=== PATIENT | female | born 1985 | race Caucasian/White ===

== ENCOUNTER → 2018-12-13 09:35 | Outpatient (CLI) | payer OTHER, SELFPAY ==
[2018-12-13 10:36] LABS: Appearance Urine UA CLEAR; Bilirubin Urine UA NEGATIVE (NEGATIVE); Color Urine UA YELLOW; Glucose Urine UA NEGATIVE (Negative); Ketones Urine UA NEGATIVE (NEGATIVE); Leukocyte Esterase Urine UA TRACE (NEGATIVE); Nitrite Urine UA NEGATIVE (Negative); Occult Blood Urine UA NEGATIVE (Negative); Protein Urine UA NEGATIVE (Negative); Urobilinogen Urine UA 0.2 E.U./dL (0.2)
[2018-12-13 10:38] LABS: Bacteria Urine None Seen; RBC Urine None Seen (0-5/HPF)
[2018-12-13 11:19] LABS: Squamous Epithelial Cell Urine 5-10 /HPF (0-5/HPF); WBC Urine 1-5/HPF (0-5/HPF)
[2018-12-13 11:47] LABS: Hepatitis B Surface Antigen NEGATIVE s/c (NEGATIVE); Rubella Antibody IgG 88.4 IU/mL (>15)
[2018-12-13 12:01] LABS: Hep C Virus Ab w/Reflex Quant NEGATIVE s/c (NEGATIVE)
[2018-12-13 17:24] LABS: Add Manual Diff / Slide Review NO; Basophils Absolute Auto 0 /uL (0-100); Eosinophils Absolute Auto 100 /uL (0-450); Eosinophils Percent Auto 1.1 % (2-4); Hematocrit 43.4 % (36-46); Hemoglobin 14.6 g/dL (12.0-16.0); Lymphocytes Absolute Auto 2400 /uL (1100-4500); Lymphocytes Percent Auto 22.9 % (25-40); Mean Corpuscular HGB Conc 33.6 % (30-36); Mean Corpuscular Hemoglobin 28.9 PG (26-34); Mean Corpuscular Volume 85.9 fL (80-100); Monocytes Absolute Auto 500 /uL (0-900); Monocytes Percent Auto 4.9 % (3-14); Neutrophils Absolute Auto 7600 /uL (1500-7000); Neutrophils Percent Auto 71.1 % (50-75); Platelet Count 324 X10^3/uL (150-400); Red Blood Cell Count 5.06 X10^6/uL (4.0-5.2); Red Cell Distribution Width 14.1 % (11.6-14.8); White Blood Cell Count 10.6 X10^3/uL (4.5-11.0)
[2018-12-13 21:37] LABS: HIV 1 and 2 Antibody NEGATIVE (NEGATIVE)
[2018-12-15 14:56] LABS: RPR Screen Nonreactive (Nonreactive)
== END ==
PROVIDERS: PCP Family Medicine; Visit Provider Family Medicine
DX: Z34.81 Encounter for supervision of other normal pregnancy, first trimester (principal)
CPT/HCPCS: 36415; 80055; 81003; 81015; 86703; 86787; 86803; 86850; 86900; 86901; 87086

== ENCOUNTER 2019-01-15 12:09 | Emergency (ER) | payer OTHER, SELFPAY ==
[2019-01-15 12:16] VITALS: BP 110/69; PULSE 86; RESP 18; TEMP 36.6; O2SAT 98
--- NOTE | 2019-01-15 14:15 | ED.FEMALEGU ---
HPI - Female Genitourinary General Chief complaint: Urogenital-Female Stated complaint: fever cloudy urine Time Seen by Provider: 01/15/19 12:20 Source: patient Mode of arrival: ambulatory Limitations: no limitations History of Present Illness HPI Narrative: 33-year-old female smoker is with twins presents with a low-grade fever earlier today which has resolved without treatment as well as cloudy urine. She denies ongoing fever nor abdominal or pelvic pain. She has no vaginal bleeding or discharge. She denies dysuria, frequency or urgency. She has a vague headache but denies any neck pain, runny nose, sore throat nor chest pain, cough or shortness of breath. She has had no nausea or vomiting. Patient : Yes Related Data Home Medications Medication Instructions Recorded Confirmed lamotrigine 100 mg tablet 100 mg PO DAILY 11/18/18 11/18/18 prazosin 2 mg capsule 2 mg PO BEDTIME 11/18/18 11/18/18 1 tab PO DAILY 11/18/18 11/18/18 vitamin,calcium,rxxyyrcx-livg-gzepv acid tablet propranolol 10 mg tablet 10 mg PO BID 11/18/18 11/18/18 trazodone 50 mg tablet 25 mg PO BEDTIME PRN 11/18/18 11/18/18 Allergies Allergy/AdvReac Type Severity Reaction Status Date / Time risperidone Allergy Severe Grand-Mal Verified 11/18/18 13:17 Seizure per patient latex AdvReac Mild Hives and Verified 11/18/18 13:18 Rash lithium AdvReac Vomiting Verified 11/18/18 13:17 Review of Systems Constitutional Denies chills, Reports fever(s), Reports headache(s), Denies lethargy and Denies weakness Eyes Denies change in vision, Denies eye discharge, Denies irritation and Denies loss of vision ENT Ears, Nose, Mouth, and Throat: Denies change in voice, Reports headache(s), Denies neck pain and Denies sore throat Cardiovascular Denies chest pain, Denies irregular heart rhythm, Denies lightheadedness, Denies palpitations, Denies dyspnea, Denies dyspnea on exertion and Denies orthopnea Respiratory Denies cough, Denies dyspnea, Denies dyspnea on exertion and Denies wheezing Gastrointestinal Gastrointestinal: Denies abdominal pain, Denies change in bowel habits, Denies diarrhea, Denies nausea and Denies vomiting Genitourinary Denies hematuria, Denies flank pain, Denies urinary incontinence and Denies urinary urgency Musculoskeletal Denies neck pain Integumentary/Breasts Denies pruritus, Denies erythema, Denies rash and Denies wounds Neurologic Denies confusion, Reports headache(s), Denies loss of vision and Denies weakness Psychiatric Denies anxiety, Denies confusion, Denies depression, Denies homicidal ideation and Denies suicidal ideation Endocrine Denies palpitations Hematologic/Lymphatic Denies easy bruising Allergic/Immunologic Denies wheezing PFSH Social History Smoking Status: Current some day smoker Social History Smoking Status: Current some day smoker Exam Narrative Exam Narrative: GENERAL: [33] year old patient appears stated age. Well-nourished, well-developed patient, in mild distress. HEAD: Atraumatic. Normocephalic. EYES: Pupils equal round and reactive. Extraocular motions intact. No scleral icterus. No injection or drainage. ENT: Nose without bleeding, purulent drainage. Throat without erythema, tonsillar hypertrophy or exudate. Airway patent. NECK: Trachea midline. Non tender. No meningeal signs CARDIOVASCULAR: Regular rate and rhythm without murmurs, gallops, or rubs. RESPIRATORY: Clear to auscultation. Breath sounds equal bilaterally. No wheezes, rales, or rhonchi. GASTROINTESTINAL: Abdomen soft, non-tender, nondistended. EXTREMITIES: No edema or joint tenderness. BACK: Nontender without deformity or crepitance. No flank tenderness. NEURO: AOx3. SKIN: No rash or erythema of visible areas Initial Vital Signs Initial Vital Signs: Vital Signs Temperature 97.9 F 01/15/19 12:16 Pulse Rate 86 01/15/19 12:16 Respiratory Rate 18 01/15/19 12:16 Blood Pressure 110/69 01/15/19 12:16 Pulse Oximetry 98 01/15/19 12:16 Course Vital Signs - 8 hr 01/15/19 12:16 Temperature 97.9 F Pulse Rate 86 Respiratory Rate 18 Blood Pressure 110/69 Pulse Oximetry 98 MDM - Female Genitourinary Lab Data Point of Care Testing Test Results Positive Urine Dip Bedside Urine Glucose Negative Bedside Urine Bilirubin - Negative Bedside Urine Ketone - Negative Urine Specific [place] 1.010 Bedside Urine Occult Blood - Negative Bedside Urine pH 6.0 Bedside Urine Protein - Negative Bedside Urine Urobilinogen - Negative Bedside Urine Nitrite - Negative Bedside Urine Leukocytes - Negative Esterase Imaging Data US - abdomen: Radiologist's impression: [address] [address] Ultrasound Report Signed Patient: Ritu BlackMR#: [id number] : 1985Acct:[id number] Age/Sex: 33 / FDate of Service: 01/15/19 Loc: ED Accession Number: [id number] Procedure: US OB <= 14 weeks fetus Ordering Provider: Lino Johansen D.O. PROCEDURE: US OB <= 14 WEEKS FETUS INDICATIONS: RIGHT PELVIC PAIN OUTSIDE/PRIOR DATING DATA: Last menstrual period (LMP): Unknown. LMP-based estimated date of delivery (PANCHITO): Unknown. First dating scan (date and location): 01/15/19. Estimated date of delivery (PANCHITO) from first dating scan: 07/20/19. TECHNIQUE: Real-time scanning was performed of the fetuses and maternal pelvic organs, with image documentation. COMPARISON: None. FINDINGS: General: An intrauterine dichorionic diamniotic twin is present, as evidenced by separate placental sites and/or intervening membrane thickness of greater than 2 mm at this early gestational age. Cervical length is 3.9 cm in length. Fetus A: Positioned towards the maternal left and is noted to be live with heart motion detected at 150 beats per minute. The crown-rump length measures 7.3 cm, correlating with an estimated gestational age of 13 weeks 3 days. No anatomic abnormalities are evident. However, on the fetus is not well evaluated given the early gestational age. The placenta appears to be developing anteriorly towards the maternal left. No retroplacental fluid collections are evident. Fetus B: Fetus B is positioned towards the maternal right. cardiac motion is detected at 155 beats per minute. The crown-rump length measures 7.6 cm, correlating with an estimated gestational age of 13 weeks 5 days. No anatomic abnormalities are evident. However, the fetus is not well evaluated given the early gestational age. The placenta is developing along the posterior aspect of the uterus towards the right of midline. Maternal organs: Ovaries are not enlarged there may be bilateral corpus luteum cysts.. Limited images through the kidneys demonstrate no hydronephrosis. However, there is a small echogenic focus within the maternal right kidney measuring up to 10 mm in diameter. IMPRESSION: 1. Dichorionic diamniotic twin live . 2. No evidence of subchorionic hemorrhage. 3. Unremarkable maternal ovaries. 4. 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 No hydronephrosis. Dictated by: Jonas Brasher M.D. on 01/15/2019 at 14:48 Approved by: Jonas Brasher M.D. on 01/15/2019 at 14:54 [facility] Narrative Medical decision making narrative: Multiple etiologies for patient's symptoms considered including: [Meningitis versus UTI versus viral syndrome versus other] Patient's symptoms improved or duration of stay with above-stated therapies. Findings and discharge diagnosis discussed with patient/family followed by verbalization of understanding Return precautions discussed with patient/family whom verbalize understanding. Discharge Plan Departure Patient Disposition: Home Clinical Impression: Headache Qualifiers: Headache type: unspecified Headache chronicity pattern: unspecified pattern Intractability: not intractable Qualified Code(s): R51 - Headache Discharge Date/Time: 01/15/19 16:20 Interventions: ED Discharge Assessment Last Done: 01/15/19 16:20 Instructions: DI for Headache Activity Restrictions/Additional Instructions: *You have been diagnosed with [mild headache and resolved fever. Your urine does not suggest infection] *What to do: * continue to take medications as directed *Follow up with your primary care provider in 2-3 days, call for an appointment. Let them know you were seen in the Emergency Department and that we ask that you be seen in follow up *Return to ER if you should have any new, worsening or concerning symptoms, such as [ ongoing fever, vomiting, diarrhea, abdominal pain or other bothersome symptoms] Prescriptions: No Action trazodone 50 mg tablet 25 mg PO BEDTIME PRNRF: 0 propranolol 10 mg tablet 10 mg PO BID RF: 0 lamotrigine [Lamictal] 100 mg tablet 100 mg PO DAILY RF: 0 prazosin 2 mg capsule 2 mg PO BEDTIME RF: 0 prenat.vits,bela,arn-qmpf-edswv tablet 1 tab PO DAILY RF: 0 Referrals: Eran Owens MD [Primary Care Provider] -
--- NOTE | 2019-01-15 14:23 | DI.US.S_ITS ---
PROCEDURE: US OB <= 14 WEEKS FETUS INDICATIONS: RIGHT PELVIC PAIN OUTSIDE/PRIOR DATING DATA: Last menstrual period (LMP): Unknown. LMP-based estimated date of delivery (PANCHITO): Unknown. First dating scan (date and location): 01/15/19. Estimated date of delivery (PANCHITO) from first dating scan: 07/20/19. TECHNIQUE: Real-time scanning was performed of the fetuses and maternal pelvic organs, with image documentation. COMPARISON: None. FINDINGS: General: An intrauterine dichorionic diamniotic twin is present, as evidenced by separate placental sites and/or intervening membrane thickness of greater than 2 mm at this early gestational age. Cervical length is 3.9 cm in length. Fetus A: Positioned towards the maternal left and is noted to be live with heart motion detected at 150 beats per minute. The crown-rump length measures 7.3 cm, correlating with an estimated gestational age of 13 weeks 3 days. No anatomic abnormalities are evident. However, on the fetus is not well evaluated given the early gestational age. The placenta appears to be developing anteriorly towards the maternal left. No retroplacental fluid collections are evident. Fetus B: Fetus B is positioned towards the maternal right. cardiac motion is detected at 155 beats per minute. The crown-rump length measures 7.6 cm, correlating with an estimated gestational age of 13 weeks 5 days. No anatomic abnormalities are evident. However, the fetus is not well evaluated given the early gestational age. The placenta is developing along the posterior aspect of the uterus towards the right of midline. Maternal organs: Ovaries are not enlarged there may be bilateral corpus luteum cysts.. Limited images through the kidneys demonstrate no hydronephrosis. However, there is a small echogenic focus within the maternal right kidney measuring up to 10 mm in diameter. IMPRESSION: 1. Dichorionic diamniotic twin live . 2. No evidence of subchorionic hemorrhage. 3. Unremarkable maternal ovaries. 4. 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 No hydronephrosis. Dictated by: Jonas Brasher M.D. on 01/15/2019 at 14:48 Approved by: Jonas Brasher M.D. on 01/15/2019 at 14:54
[2019-01-15 14:49] VITALS: BP 107/50; PULSE 79; RESP 14; O2SAT 99
[2019-01-15 15:47] VITALS: BP 117/78; PULSE 86; RESP 15; O2SAT 100
--- NOTE | 2019-01-15 15:50 | PC.NURSE ---
Pt states having had cloudy urine this morning. Denies any burning sensation, urinary frequency or urgency. stated had fever today. States has high as 101.8 orally. states has had headache with mild dizziness. denies any other symptoms.
--- NOTE | 2019-01-16 08:12 | ED_ITS ---
HPI - Female Genitourinary General Chief complaint: Urogenital-Female Stated complaint: fever cloudy urine Time Seen by Provider: 01/15/19 12:20 Source: patient Mode of arrival: ambulatory Limitations: no limitations History of Present Illness HPI Narrative: 33-year-old female smoker is with twins presents with a low-grade fever earlier today which has resolved without treatment as well as cloudy urine. She denies ongoing fever nor abdominal or pelvic pain. She has no vaginal bleeding or discharge. She denies dysuria, frequency or urgency. She has a vague headache but denies any neck pain, runny nose, sore throat nor chest pain, cough or shortness of breath. She has had no nausea or vomiting. Patient : Yes Related Data Home Medications Medication Instructions Recorded Confirmed lamotrigine 100 mg tablet 100 mg PO DAILY 11/18/18 11/18/18 prazosin 2 mg capsule 2 mg PO BEDTIME 11/18/18 11/18/18 1 tab PO DAILY 11/18/18 11/18/18 vitamin,calcium,hozbgxah-jprq-otsbr acid tablet propranolol 10 mg tablet 10 mg PO BID 11/18/18 11/18/18 trazodone 50 mg tablet 25 mg PO BEDTIME PRN 11/18/18 11/18/18 Allergies Allergy/AdvReac Type Severity Reaction Status Date / Time risperidone Allergy Severe Grand-Mal Verified 11/18/18 13:17 Seizure per patient latex AdvReac Mild Hives and Verified 11/18/18 13:18 Rash lithium AdvReac Vomiting Verified 11/18/18 13:17 Review of Systems Constitutional Denies chills, Reports fever(s), Reports headache(s), Denies lethargy and Denies weakness Eyes Denies change in vision, Denies eye discharge, Denies irritation and Denies loss of vision ENT Ears, Nose, Mouth, and Throat: Denies change in voice, Reports headache(s), Denies neck pain and Denies sore throat Cardiovascular Denies chest pain, Denies irregular heart rhythm, Denies lightheadedness, Denies palpitations, Denies dyspnea, Denies dyspnea on exertion and Denies orthopnea Respiratory Denies cough, Denies dyspnea, Denies dyspnea on exertion and Denies wheezing Gastrointestinal Gastrointestinal: Denies abdominal pain, Denies change in bowel habits, Denies diarrhea, Denies nausea and Denies vomiting Genitourinary Denies hematuria, Denies flank pain, Denies urinary incontinence and Denies urinary urgency Musculoskeletal Denies neck pain Integumentary/Breasts Denies pruritus, Denies erythema, Denies rash and Denies wounds Neurologic Denies confusion, Reports headache(s), Denies loss of vision and Denies weakness Psychiatric Denies anxiety, Denies confusion, Denies depression, Denies homicidal ideation and Denies suicidal ideation Endocrine Denies palpitations Hematologic/Lymphatic Denies easy bruising Allergic/Immunologic Denies wheezing PFSH Social History Smoking Status: Current some day smoker Social History Smoking Status: Current some day smoker Exam Narrative Exam Narrative: GENERAL: [33] year old patient appears stated age. Well- nourished, well-developed patient, in mild distress. HEAD: Atraumatic. Normocephalic. EYES: Pupils equal round and reactive. Extraocular motions intact. No scleral icterus. No injection or drainage. ENT: Nose without bleeding, purulent drainage. Throat without erythema, tonsillar hypertrophy or exudate. Airway patent. NECK: Trachea midline. Non tender. No meningeal signs CARDIOVASCULAR: Regular rate and rhythm without murmurs, gallops, or rubs. RESPIRATORY: Clear to auscultation. Breath sounds equal bilaterally. No wheezes, rales, or rhonchi. GASTROINTESTINAL: Abdomen soft, non-tender, nondistended. EXTREMITIES: No edema or joint tenderness. BACK: Nontender without deformity or crepitance. No flank tenderness. NEURO: AOx3. SKIN: No rash or erythema of visible areas Initial Vital Signs Initial Vital Signs: Vital Signs Temperature 97.9 F 01/15/19 12:16 Pulse Rate 86 01/15/19 12:16 Respiratory Rate 18 01/15/19 12:16 Blood Pressure 110/69 01/15/19 12:16 Pulse Oximetry 98 01/15/19 12:16 Course Vital Signs - 8 hr 01/15/19 12:16 Temperature 97.9 F Pulse Rate 86 Respiratory Rate 18 Blood Pressure 110/69 Pulse Oximetry 98 MDM - Female Genitourinary Lab Data Point of Care Testing Test Results Positive Urine Dip Bedside Urine Glucose Negative Bedside Urine Bilirubin - Negative Bedside Urine Ketone - Negative Urine Specific [place] 1.010 Bedside Urine Occult Blood - Negative Bedside Urine pH 6.0 Bedside Urine Protein - Negative Bedside Urine Urobilinogen - Negative Bedside Urine Nitrite - Negative Bedside Urine Leukocytes - Negative Esterase Imaging Data US - abdomen: Radiologist's impression: [address] [address] Ultrasound Report Signed Patient: Ritu BlackMR#: [id number] : 1985Acct:[id number] Age/Sex: 33 / FDate of Service: 01/15/19 Loc: ED Accession Number: [id number] Procedure: US OB <= 14 weeks fetus Ordering Provider: Lino Johansen D.O. PROCEDURE: US OB <= 14 WEEKS FETUS INDICATIONS: RIGHT PELVIC PAIN OUTSIDE/PRIOR DATING DATA: Last menstrual period (LMP): Unknown. LMP-based estimated date of delivery (PANCHITO): Unknown. First dating scan (date and location): 01/15/19. Estimated date of delivery (PANCHITO) from first dating scan: 07/20/19. TECHNIQUE: Real-time scanning was performed of the fetuses and maternal pelvic organs, with image documentation. COMPARISON: None. FINDINGS: General: An intrauterine dichorionic diamniotic twin is present, as evidenced by separate placental sites and/or intervening membrane thickness of greater than 2 mm at this early gestational age. Cervical length is 3.9 cm in length. Fetus A: Positioned towards the maternal left and is noted to be live with heart motion detected at 150 beats per minute. The crown-rump length measures 7.3 cm, correlating with an estimated gestational age of 13 weeks 3 days. No anatomic abnormalities are evident. However, on the fetus is not well evaluated given the early gestational age. The placenta appears to be developing anteriorly towards the maternal left. No retroplacental fluid collections are evident. Fetus B: Fetus B is positioned towards the maternal right. cardiac motion is detected at 155 beats per minute. The crown-rump length measures 7.6 cm, correlating with an estimated gestational age of 13 weeks 5 days. No anatomic abnormalities are evident. However, the fetus is not well evaluated given the early gestational age. The placenta is developing along the posterior aspect of the uterus towards the right of midline. Maternal organs: Ovaries are not enlarged there may be bilateral corpus luteum cysts.. Limited images through the kidneys demonstrate no hydronephrosis. However, there is a small echogenic focus within the maternal right kidney measuring up to 10 mm in diameter. IMPRESSION: 1. Dichorionic diamniotic twin live . 2. No evidence of subchorionic hemorrhage. 3. Unremarkable maternal ovaries. 4. 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 No hydronephrosis. Dictated by: Jonas Brasher M.D. on 01/15/2019 at 14:48 Approved by: Jonas Brasher M.D. on 01/15/2019 at 14:54 [facility] Narrative Medical decision making narrative: Multiple etiologies for patient's symptoms considered including: [Meningitis versus UTI versus viral syndrome versus other] Patient's symptoms improved or duration of stay with above-stated therapies. Findings and discharge diagnosis discussed with patient/family followed by verbalization of understanding Return precautions discussed with patient/family whom verbalize understanding. Discharge Plan Departure Patient Disposition: Home Clinical Impression: Headache Qualifiers: Headache type: unspecified Headache chronicity pattern: unspecified pattern Intractability: not intractable Qualified Code(s): R51 - Headache Discharge Date/Time: 01/15/19 16:20 Interventions: ED Discharge Assessment Last Done: 01/15/19 16:20 Instructions: DI for Headache Activity Restrictions/Additional Instructions: *You have been diagnosed with [mild headache and resolved fever. Your urine does not suggest infection] *What to do: * continue to take medications as directed *Follow up with your primary care provider in 2-3 days, call for an appointment. Let them know you were seen in the Emergency Department and that we ask that you be seen in follow up *Return to ER if you should have any new, worsening or concerning symptoms, such as [ ongoing fever, vomiting, diarrhea, abdominal pain or other bothersome symptoms] Prescriptions: No Action trazodone 50 mg tablet 25 mg PO BEDTIME PRNRF: 0 propranolol 10 mg tablet 10 mg PO BID RF: 0 lamotrigine [Lamictal] 100 mg tablet 100 mg PO DAILY RF: 0 prazosin 2 mg capsule 2 mg PO BEDTIME RF: 0 prenat.vits,bela,hyv-doqn-ednck tablet 1 tab PO DAILY RF: 0 Referrals: Eran Owens MD [Primary Care Provider] -
== END 2019-01-15 16:20 | disposition home or self-care (01) ==
PROVIDERS: Emergency Provider Emergency Medicine; PCP Family Medicine
DX: O26.91 Pregnancy related conditions, unspecified, first trimester (principal); R10.2 Pelvic and perineal pain; R42 Dizziness and giddiness; R51 Headache; Z3A.13 13 weeks gestation of pregnancy
CPT/HCPCS: 76801; 76802; 81003; 81025; 99282; 99283

== ENCOUNTER → 2019-02-08 09:21 | Outpatient (CLI) | payer OTHER, SELFPAY ==
[2019-02-08 15:56] LABS: HIV 1 and 2 Antibody NEGATIVE (NEGATIVE)
[2019-02-10 22:35] LABS: AFP, Serum 58.9 ng/mL; Calc Gestational Age 16.9; Cigarette Smoker Y; Estriol, Free 1.97 ng/mL; Inhibin A, Dimeric 360 pg/mL; Maternal Weight 182 lbs; Number of Fetuses 2; Risk of Open Neural Tube Defec UNAVAILABLE; hCG, MoM 1.56; hCG, Serum 40.6 IU/mL
== END ==
PROVIDERS: PCP Family Medicine; Visit Provider Family Medicine
DX: Z34.81 Encounter for supervision of other normal pregnancy, first trimester (principal)
CPT/HCPCS: 36415; 82105; 82677; 84702; 86336; 86703

== ENCOUNTER → 2019-03-07 10:10 | Outpatient (CLI) | payer OTHER, SELFPAY ==
--- NOTE | 2019-03-07 10:11 | DI.US.S_ITS ---
PROCEDURE: US OB >= 14 WEEKS FETUS INDICATIONS: ANATOMY; TWINS OUTSIDE/PRIOR DATING DATA: First dating scan (date and location): 01/15/19. Estimated date of delivery (PANCHITO) from first dating scan: 07/20/19. TECHNIQUE: Real-time scanning was performed of the fetuses, with image documentation and biometric measurements. Endovaginal scanning: No COMPARISON: [facility], OB <= 14 WEEKS FETUS, 01/15/2019, 14:54. FINDINGS: General: An intrauterine dichorionic-diamniotic twin is present, as evidenced by separate placentas, differing sexes, or an intervening membrane of greater than 2 mm. Amniotic fluid index (composite): 16.4 cm. Maternal cervical canal: 4.3 cm long. Normal lower limit is 2.5 cm. FETUS A: Fetus is located on the maternal left side, and is in vertex presentation. Largest amniotic fluid pocket: Not evaluated. Placental position is anterior, without previa. heart rate: 139 beats per minute. biometrics: Biparietal diameter: 20 weeks 1 day Head circumference: 20 weeks 5 days Abdominal circumference: 20 weeks 5 days Femur length: 20 weeks 5 days Estimated gestational age from initial scan: 20 weeks 5 days Composite gestational age from present scan: 20 weeks 4 days Estimated weight and percentile: 368 g; 41st percentile Measurement variability for biometric dating: +/- 7 days from 14 weeks to 15 weeks 6 days gestation, +/- 10 days from 16 weeks to 21 weeks 6 days gestation, +/- 2 weeks from 22 weeks to 27 weeks 6 days gestation, +/- 3 weeks for 28 weeks gestation or later. weight reference: 4500 g or EFW >90/95% is considered macrosomia or large for gestational age. EFW <10% is small for gestational age. EFW 5% or less is considered intra-uterine growth restriction. Anatomic survey: Neuro: Ventricles are normal at less than 10 mm. Cisterna magna is normal at 3-11 mm. Cerebellum is normal in size and morphology. Nuchal skin fold: Normal at less than 6 mm between 14 and 21 weeks gestational age. Face: Not well-visualized. Spine: No evidence for spina bifida. Heart: 4 chambered heart is present, with normal ventricular outflow tracts. Diaphragm: Diaphragm is intact. Stomach: Left-sided stomach is present. Kidneys: No hydronephrosis. Normal ranges are less than 5 mm in 2nd trimester, less than 7 mm in 3rd trimester. Cord: 3 vessel cord has orthotopic insertion. Bladder: Normal in size. Extremities: All 4 extremities are visualized. FETUS B: Fetus is located on the maternal right side, and is in vertex presentation. Largest amniotic fluid pocket: 18.3 cm; normal range is 2-8 cm. Placental position is posterior, without previa. heart rate: 135 beats per minute. biometrics: Biparietal diameter: 21 weeks 6 days Head circumference: 21 weeks 3 days Abdominal circumference: 22 weeks 2 days Femur length: 20 weeks 1 day Estimated gestational age from initial scan: 20 weeks 5 days Composite gestational age from present scan: 21 weeks 3 days Estimated weight and percentile: 4:15 grams; 78% Measurement variability for biometric dating: +/- 7 days from 14 weeks to 15 weeks 6 days gestation, +/- 10 days from 16 weeks to 21 weeks 6 days gestation, +/- 2 weeks from 22 weeks to 27 weeks 6 days gestation, +/- 3 weeks for 28 weeks gestation or later. weight reference: 4500 g or EFW >90/95% is considered macrosomia or large for gestational age. EFW <10% is small for gestational age. EFW 5% or less is considered intra-uterine growth restriction. Anatomic survey: Neuro: Ventricles are normal at less than 10 mm. Cisterna magna is normal at 3-11 mm. Cerebellum is normal in size and morphology. Nuchal skin fold: Normal at less than 6 mm between 14 and 21 weeks gestational age. Face: Nose and lips, facial profile are normal. Spine: No evidence for spina bifida. Heart: 4 chambered heart is present, with normal ventricular outflow tracts. Diaphragm: Diaphragm is intact. Stomach: Left-sided stomach is present. Kidneys: No hydronephrosis. Normal ranges are less than 5 mm in 2nd trimester, less than 7 mm in 3rd trimester. Cord: 3 vessel cord has orthotopic insertion. Bladder: Normal in size. Extremities: All 4 extremities are visualized. IMPRESSION: Diamniotic dichorionic twin living and interval growth is normal with PANCHITO of 07/20/19. face not well-visualized; otherwise normal anatomic survey for fetus A. Normal anatomic survey for fetus B. Dictated by: Patrice AUSTIN Interpreted: Romelia Rivas MD on 03/07/2019 at 12:02 Approved by: Romelia Rivas MD, PhD on 03/07/2019 at 12:57
== END ==
PROVIDERS: PCP Family Medicine; Visit Provider Family Medicine
DX: O30.042 Twin pregnancy, dichorionic/diamniotic, second trimester (principal); Z3A.20 20 weeks gestation of pregnancy
CPT/HCPCS: 76811; 76812

== ENCOUNTER 2019-03-28 09:34 | Outpatient (CLI) | payer OTHER, SELFPAY | END 2019-03-28 10:35 | disposition home or self-care (01) | LOC: LABOR 10:19 → OB 03-29 16:30 | PROVIDERS: PCP Family Medicine; Visit Provider Family Medicine | DX: O26.892 Other specified pregnancy related conditions, second trimester (principal); O99.332 Smoking (tobacco) complicating pregnancy, second trimester; Z3A.23 23 weeks gestation of pregnancy; N89.8 Other specified noninflammatory disorders of vagina | CPT/HCPCS: 59025; 84112; G0378; G0379 ==

== ENCOUNTER → 2019-03-29 15:18 | Outpatient (CLI) | payer OTHER, MEDICAID, SELFPAY ==
--- NOTE | 2019-03-29 15:21 | DI.US.S_ITS ---
PROCEDURE: US OB LIMITED INDICATIONS: LEAKAGE OF AMNIOTIC FLUID OUTSIDE/PRIOR DATING DATA: First dating scan (date and location): 01/15/19. Estimated date of delivery (PANCHITO) from first dating scan: 07/20/19.. TECHNIQUE: Real-time scanning was performed of the fetuses, with image documentation and biometric measurements. Endovaginal scanning: No COMPARISON: None. FINDINGS: General: An intrauterine dichorionic-diamniotic twin is present, as evidenced by separate placentas, differing sexes, or an intervening membrane of greater than 2 mm. Composite amniotic fluid index: 14.0 cm. Maternal cervical canal: 4.2 cm long. Normal lower limit is 2.5 cm. FETUS A: Fetus is located on the maternal left side, and is in vertex presentation. . Placental position is anterior, without previa. heart rate: 130 beats per minute. FETUS B: Fetus is located on the maternal right side, and is in breech presentation. Placental position is anterior, without previa. heart rate: 153 beats per minute. IMPRESSION: 1. Diamniotic dichorionic living twin gestations. 2. Normal amniotic fluid indeces. Dictated by: Patrice Jones [facility] Interpreted: Echo Cordero MD on 03/31/2019 at 14:05 Approved by: Echo Cordero M.D. on 03/31/2019 at 18:44
== END ==
PROVIDERS: PCP Family Medicine; Visit Provider Family Medicine
DX: O42.90 Premature rupture of membranes, unspecified as to length of time between rupture and onset of labor, unspecified weeks of gestation (principal); O30.049 Twin pregnancy, dichorionic/diamniotic, unspecified trimester
CPT/HCPCS: 76815

== ENCOUNTER → 2019-04-16 10:22 | Outpatient (CLI) | payer OTHER, MEDICAID, SELFPAY ==
[2019-04-16 12:14] LABS: Hematocrit 35.6 % (36-46)
[2019-04-16 12:44] LABS: GTT (PREG) 1 Hour PP 50gm Dose 116 mg/dL (76-139)
== END ==
PROVIDERS: PCP Family Medicine; Visit Provider Family Medicine
DX: Z34.82 Encounter for supervision of other normal pregnancy, second trimester (principal); Z3A.24 24 weeks gestation of pregnancy
CPT/HCPCS: 36415; 82950; 85014; 85018

== ENCOUNTER 2019-05-30 10:32 | Outpatient (CLI) | payer OTHER, MEDICAID, SELFPAY ==
--- NOTE | 2019-05-30 11:14 | PM.OBTRLD ---
[facility] Social History Smoking Status: Current some day smoker Evaluation Evaluation Comments: 33-year-old in after office visit today for weekly NST patient is twin twin diet dye at 33 weeks gestational age. heart strip reviewed today. Category 1 tracing. Continue with weekly NSTs.
== END 2019-05-30 11:20 | disposition home or self-care (01) ==
LOC: OB 06-03 11:17
PROVIDERS: PCP Family Medicine; Visit Provider Family Medicine
DX: O30.003 Twin pregnancy, unspecified number of placenta and unspecified number of amniotic sacs, third trimester (principal); Z3A.32 32 weeks gestation of pregnancy
CPT/HCPCS: 59025; G0378; G0379

== ENCOUNTER → 2019-06-02 11:34 | Outpatient (CLI) | payer OTHER, MEDICAID, SELFPAY ==
--- NOTE | 2019-06-02 11:35 | DI.US.S_ITS ---
PROCEDURE: US OB LIMITED INDICATIONS: GROWTH - TWINS OUTSIDE/PRIOR DATING DATA: Last menstrual period (LMP): Not available. LMP-based estimated date of delivery (PANCHITO): Not available. First dating scan (date and location): 01/15/19. Estimated date of delivery (PANCHITO) from first dating scan: 07/20/19. TECHNIQUE: Real-time scanning was performed of the fetuses, with image documentation and biometric measurements. Endovaginal scanning: Not needed for this study. COMPARISON: [facility], OB >= 14 WEEKS FETUS, 05/10/2019, 10:03. [facility] OB >= 14 WEEKS FETUS, 03/07/2019, 10:36. [facility] OB <= 14 WEEKS FETUS, 01/15/2019, 14:54. [facility], OB LIMITED, 03/29/2019, 15:36. FINDINGS: General: An intrauterine dichorionic-diamniotic twin is present, as evidenced by separate placentas, differing sexes, or an intervening membrane of greater than 2 mm. Composite amniotic fluid index: 17.2 cm. FETUS A: Fetus is located in vertex presentation. Placental position is anterior, without previa. heart rate: 139 beats per minute. biometrics: Biparietal diameter: 7.8 cm, 31 weeks 2 days Head circumference: 29.7 cm, 32 weeks 6 days Abdominal circumference: 29.8 cm, 33 weeks 6 days Femur length: 6.2 cm, 32 weeks 4 days Estimated gestational age from initial scan: 33 weeks 1 day Composite gestational age from present scan: 32 weeks 4 days Estimated weight and percentile: 2087 g, 35th percentile Measurement variability for biometric dating: +/- 7 days from 14 weeks to 15 weeks 6 days gestation, +/- 10 days from 16 weeks to 21 weeks 6 days gestation, +/- 2 weeks from 22 weeks to 27 weeks 6 days gestation, +/- 3 weeks for 28 weeks gestation or later. weight reference: 4500 g or EFW >90/95% is considered macrosomia or large for gestational age. EFW <10% is small for gestational age. EFW 5% or less is considered intra-uterine growth restriction. FETUS B: Fetus is located on the maternal right side, and is in transverse presentation. Placental position is fundal, without previa. heart rate: 141 beats per minute. biometrics: Biparietal diameter: 8.7 cm, 35 weeks 1 day Head circumference: 31.6 cm, 35 weeks 4 days Abdominal circumference: 31.4 cm, 35 weeks 2 days Femur length: 6.5 cm, 33 weeks 3 days Estimated gestational age from initial scan: 33 weeks 1 day Composite gestational age from present scan: 34 weeks 4 days Estimated weight and percentile: 2526 g, 88th percentile Measurement variability for biometric dating: +/- 7 days from 14 weeks to 15 weeks 6 days gestation, +/- 10 days from 16 weeks to 21 weeks 6 days gestation, +/- 2 weeks from 22 weeks to 27 weeks 6 days gestation, +/- 3 weeks for 28 weeks gestation or later. weight reference: 4500 g or EFW >90/95% is considered macrosomia or large for gestational age. EFW <10% is small for gestational age. EFW 5% or less is considered intra-uterine growth restriction. IMPRESSION: Living dichorionic diamniotic twin gestations, with current asymmetry in size showing the twin A. (vertex presentation) to be at the 35th percentile for current gestational age in terms of weight (2087 g) when compared to the twin B having a weight of 2526 g (88th percentile). Amniotic fluid volume appears normal for each twin, and the delivery date is projected to be centered on 07/20/19. Dictated by: Holden Alvarez M.D. on 06/02/2019 at 14:04 Approved by: Holden Alvarez M.D. on 06/02/2019 at 14:24
== END ==
PROVIDERS: PCP Family Medicine; Visit Provider Family Medicine
DX: O30.043 Twin pregnancy, dichorionic/diamniotic, third trimester (principal); Z3A.33 33 weeks gestation of pregnancy
CPT/HCPCS: 76812; 76815

== ENCOUNTER 2019-06-07 11:14 | Outpatient (CLI) | payer OTHER, MEDICAID, SELFPAY | END 2019-06-07 11:20 | disposition home or self-care (01) | LOC: OB 06-10 12:45 | PROVIDERS: PCP Family Medicine; Visit Provider Family Medicine | DX: O30.003 Twin pregnancy, unspecified number of placenta and unspecified number of amniotic sacs, third trimester (principal); O47.03 False labor before 37 completed weeks of gestation, third trimester; Z3A.33 33 weeks gestation of pregnancy | CPT/HCPCS: 59025; G0378; G0379 ==

== ENCOUNTER 2019-06-13 11:18 | Outpatient (CLI) | payer OTHER, MEDICAID, SELFPAY ==
--- NOTE | 2019-06-13 13:14 | P.TNLD_ITS ---
Visit Information Visit Information Date of evaluation: 06/13/19 Reason for Evaluation: Yes non-stress test Comments/Additional reasons for admission: Reassuring nonstress test. Category 1 tracing of both fetuses. [facility] Social History Smoking Status: Current some day smoker
== END 2019-06-13 12:40 | disposition home or self-care (01) ==
LOC: LABOR 12:40 → OB 15:49
PROVIDERS: PCP Family Medicine; Visit Provider Family Medicine
DX: O30.003 Twin pregnancy, unspecified number of placenta and unspecified number of amniotic sacs, third trimester (principal); O99.333 Smoking (tobacco) complicating pregnancy, third trimester; Z3A.34 34 weeks gestation of pregnancy
CPT/HCPCS: 59025; G0378; G0379

== ENCOUNTER 2019-06-20 10:44 | Outpatient (CLI) | payer OTHER, MEDICAID, SELFPAY ==
--- NOTE | 2019-06-20 11:25 | PM.OBTRLD ---
Visit Information Visit Information Date of evaluation: 06/20/19 Primary OB Provider: Eran Owens Reason for Evaluation: Yes non-stress test Comments/Additional reasons for admission: NST. Twin . heart tones are reassuring on fetus a and B. Some mild contractions. Category 1 tracing continue with weekly NSTs [facility] Social History Smoking Status: Current some day smoker
== END 2019-06-20 11:39 | disposition home or self-care (01) ==
LOC: OB 14:41
PROVIDERS: PCP Family Medicine; Visit Provider Family Medicine
DX: O30.003 Twin pregnancy, unspecified number of placenta and unspecified number of amniotic sacs, third trimester (principal); Z3A.35 35 weeks gestation of pregnancy
CPT/HCPCS: 59025; G0378; G0379

== ENCOUNTER → 2019-06-27 10:29 | Outpatient (CLI) | payer OTHER, MEDICAID, SELFPAY ==
[2019-06-28 09:02] LABS: Strep Grp B PCR NEG for Grp B Strep
== END ==
PROVIDERS: PCP Family Medicine; Visit Provider Family Medicine
DX: Z34.83 Encounter for supervision of other normal pregnancy, third trimester (principal); Z3A.36 36 weeks gestation of pregnancy
CPT/HCPCS: 87653

== ENCOUNTER 2019-06-27 10:39 | Outpatient (CLI) | payer OTHER, MEDICAID, SELFPAY ==
--- NOTE | 2019-06-27 11:23 | PM.OBTRLD ---
Visit Information Visit Information Date of evaluation: 06/27/19 Reason for Evaluation: Yes non-stress test Comments/Additional reasons for admission: Nonstress test for twin . scheduled next Thursday. Category 1 tracing today. Intermittent contractions not palpable blood pressure looks good and office as well as in the center. [facility] Social History Smoking Status: Current some day smoker
== END 2019-06-27 11:25 | disposition home or self-care (01) ==
LOC: LABOR 11:39 → OB 15:17
PROVIDERS: PCP Family Medicine; Visit Provider Family Medicine
DX: O30.049 Twin pregnancy, dichorionic/diamniotic, unspecified trimester (principal); Z3A.36 36 weeks gestation of pregnancy; O99.333 Smoking (tobacco) complicating pregnancy, third trimester
CPT/HCPCS: 59025; 87653; G0378; G0379

== ENCOUNTER 2019-07-04 05:46 | Inpatient (IN) | payer OTHER, MEDICAID, SELFPAY ==
--- NOTE | 2019-07-04 | PATH_ITS ---
[facility] Accession Number: [id number] . 01 Material submitted: . fallopian tube - BILATERAL FALLOPIAN TUBE SEGMENTS . 02 Diagnosis: Bilateral Fallopian Tube Segments, Bilateral Tubal Ligation: Two complete cross-sections of fallopian tube. No evidence of neoplasm. [facility] 07/05/2019 1510 Local . 02 Electronically signed: . Bashir Arnold MD, PhD, Pathologist NPI- [id number] . 01 Gross description: . Received in one formalin-filled container, labeled with the patient's name and labeled bilateral fallopian tube segments, are two non-fimbriated, rough, cylindrical-shaped portions of tissue. The first measures 0.6 x 0.6 x 0.5 cm; inked blue, bisected, and totally submitted in cassette A1. The second piece measures 1.0 x 0.6 x 0.6 cm; inked blue, trisected, and totally submitted in cassette A2. (DC:[id number]) /[facility] 07/05/20197 Local . 02 Pathologist provided ICD-10: Z30.2 . 02 CPT . 251445 Performed at: 01 [facility] include 234 beds at the [facility] [address], [place], [place] [id number] MD Shakeel Sampson MD Phone: [phone] Performed at: 02 [facility] [address] [place], [place] [id number] MD Jessica Novak MD Phone: [phone]
[2019-07-04] MEDS: LACTATED RINGERS 1,000 ML 100 ML IV ×5 (06:30→17:10)
--- NOTE | 2019-07-04 07:18 | P.HP_ITS ---
History of Present Illness History of Present Illness Date Patient Seen: 07/04/19 Time Patient Seen: 07:18 Chief complaint: [id number] Narrative: 34-year-old female G5 para 3 with than estimated due date of 07/20/2019 by ultrasound and LMP. Puts her at 37 weeks and 6 7th gestational age. care complicated by dichorionic diamniotic twin . History of smoking which she quit during early part of history of PTSD and anxiety. care was initiated at 8 weeks gestational age. Had routine follow-up during care. Had a visit with maternal medicine and Obstetrics at [facility]. Patient had weekly NSTs starting at 30 4 weeks gestational age. Patient has done well throughout the baby. There has been concordant growth during the ultrasounds had follow-up. Mom's blood pressure has been stable throughout the . She has had a weight gain of approximately 70 lb. During here care she was on vitamins Lamictal and propanolol for anxiety and PTSD. And the early part of pr egnancy she stopped her trazodone prazosin and Adderall. On the day evaluation in the obstetric floor she is excited nervous and says she did not sleep well last night. She has been feeling well. Although not sleeping well at all. She has had nothing to eat since late last night. Her blood pressure stable. She has had good movement. She has had no feet fever chills. She has had intermittent abdominal pain and swelling during the . laboratory tests show blood type O-positive antibody screen negative hematocrit 43.4 platelet count 324 VDRL nonreactive urine culture within normal limits hepatitis-B surface antigen negative HIV negative GC chlamydia negative rubella immune Pap smear within normal limits varicella immune genetic screening was within normal limits. Diabetes screen was 116. GBS test was negative. On admission to the hospital. We reviewed admission orders. Operative procedure for for delivery of twins and tubal pressure ligation for permanent sterilization. Questions were answered. Risks benefits and discussion of the operative procedure reviewed with patient and . Consent was reviewed and signed. All questions were answered. Patient History Family & Social History Tobacco & Substance use: Smoking Status Current some day smoker Substance Use Type does not use Meds Home Medications and Allergies Home Medications Medication Instructions Recorded Confirmed Type lamotrigine 100 mg tablet 100 mg PO DAILY 11/18/18 06/27/19 History prenat.vits,bela,gmw-ykqg-kvyun 1 tab PO DAILY 11/18/18 06/27/19 History propranolol 10 mg tablet 10 mg PO BID 11/18/18 06/27/19 History Allergies Allergy/AdvReac Type Severity Reaction Status Date / Time risperidone Allergy Severe Grand-Mal Verified 06/27/19 09:41 Seizure per patient latex AdvReac Mild Hives and Verified 06/27/19 09:41 Rash lithium AdvReac Vomiting Verified 06/27/19 09:41 Exam Narrative Exam Narrative: . General: Alert no apparent distress. Affect is appropriate. Tucker it is uncomfortable. HEENT: Neck is supple without lymphadenopathy pupils equal round and reactive. Cardio: S1-S2 regular rate and rhythm. Respiratory: Lungs clear to auscultation. Abdomen: Gravid. Extremities: Normal deep tendon reflexes trace edema. [place]: No significant contractions heart tones: Category 1 tracing for both fetuses Assessment & Plan Assessment & Plan narrative: 34-year-old female G5 para 3 at 376 7th weeks gestational age for section for twin dichorionic diamniotic. Patient also desiring tubal sterilization. Preoperative orders were written for. Procedure was discussed in detail with her . Consent was obtained. History and physical done this morning and dictated. Questions were answered patient. Patient is on-call to the OR after meeting with anesthesia. Before surgery. Obtain CBC blood type type and hold check platelets. She will given antibiotics on-call to the emergency room.
[2019-07-04 07:21] VITALS: BP 117/63
[2019-07-04 07:33] LABS: Add Manual Diff / Slide Review NO; Basophils Absolute Auto 0 /uL (0-100); Basophils Percent Auto 0.2 % (0-2); Eosinophils Absolute Auto 200 /uL (0-450); Eosinophils Percent Auto 1.6 % (2-4); Hematocrit 39.3 % (36-46); Hemoglobin 13.2 g/dL (12.0-16.0); Lymphocytes Absolute Auto 2600 /uL (1100-4500); Lymphocytes Percent Auto 17.9 % (25-40); Mean Corpuscular HGB Conc 33.6 % (30-36); Mean Corpuscular Hemoglobin 28.4 PG (26-34); Mean Corpuscular Volume 84.3 fL (80-100); Monocytes Absolute Auto 800 /uL (0-900); Monocytes Percent Auto 5.8 % (3-14); Neutrophils Absolute Auto 10600 /uL (1500-7000); Neutrophils Percent Auto 74.5 % (50-75); Platelet Count 244 X10^3/uL (150-400); Red Blood Cell Count 4.66 X10^6/uL (4.0-5.2); Red Cell Distribution Width 14.9 % (11.6-14.8); White Blood Cell Count 14.3 X10^3/uL (4.5-11.0)
[2019-07-04] MEDS: CEFAZOLIN 2 GM/100 ML FROZ.PIGGY IV (07:48)
--- NOTE | 2019-07-04 08:13 | SUR.OPER ---
Supine on Padded OR bed, head on pillow, safety belt at thigh, arms secured on padded arm boards at <90 degrees abduction. Bump under right buttock. Legs uncrossed with pillow under knees, gel pad to heels, tape over blanket to lower legs.
[2019-07-04 08:58] VITALS: BP 112/55; PULSE 78; RESP 14; TEMP 36.1; O2SAT 100
--- NOTE | 2019-07-04 09:01 | P.PCN_ITS ---
Procedures Date/Time Date of procedure: 07/04/19 Time of procedure: 09:02 General Procedure description: Procedure: Lower segment transverse section Consent: Verbal and written informed consent were obtained from the patient placed on the chart. Indications: 34-year-old G5 para 3 37 week 6 day gestational with twins for primary Findings: Normal uterus normal ovaries Viable female and male Anesthesia: Spinal Surgeon: Dr. Eran Owens Manufacturing Specialist: Dr. becka Walton Estimated blood loss: 500 mL Drains: Blackburn to gravity. IV fluids: 2.4 L LR Description of procedure: The patient was brought to the operating room after her spinal epidural, preparation, and Blackburn had been performed. The abdomen was prepped and draped in tested for for analgesia. When it was found to be adequate, a lower abdominal Pfannenstiel incision was made with first with a knife and cared down to the fascia with a second knife. The fascia was incised in the midline and extended laterally with a knife. Bleeding points were clamped with hemostats and Bovie coagulated. The rectus muscles were by blunt dissection. The rectus muscles were divided in the midline and the peritoneum was grasped with hemostats and carefully entered with Granda scissors. The incision was extended bilaterally. The bladder blade was then placed. The vesicoperitoneum was grasped with smooth pickups, entered with Metzenbaum scissors, and extended laterally. The bladder flap was created by gently blunt dissection and placed behind the bladder blade. The lower uterine segment was noted to be thin was carefully incised with the scalpel and extended laterally with the fingers. Membranes were ruptured with copious fluids baby's head was in the vertex position the female baby was delivered without difficulty. Cord was clamped transected and baby was a handed to the warmer. The 2nd amniotic sac fluid was ruptured with copious amounts of clear fluid. Baby was found to be in the vertex position. The the male baby was born without difficulty and placed on the warmer. The placentas was delivered manually after cord blood samples were taken from each placenta.. The uterus was explored with a wet lap sponge and found to be clear membranes. The first layer of the uterine closure was with running locking #1 chromic catgut suture. The second layer with an imbricating #1 chromic catgut suture. Hemostasis was carefully checked and found to be satisfactory. The bladder flap was closed with a running 2-0 chromic catgut suture. The fallopian tubes and ovaries were inspected and to be found normal bilaterally. At that point each fallopian tube was transected using the [place] procedure. An intervening in segment was sent for pathology. After removal of the section of the tube coagulation was done on the and then hemostasis was adequate. After sponge and needle counts were found to be correct the peritoneum was closed with 2-0 chromic catgut suture. Rectus muscles were approximated in the lower midline. The fascia was closed with a 2 running 0 Vicryl from lateral to midline. The subcutaneous tissue was approximated with interrupted 2.0 plain gut. Bleeding points were Bovie and coagulated. The subcutaneous tissue was approximated with 2.0 plain gut suture. The skin was closed with 1-0 running subcuticular stitch. Urinary output was adequate and normal patient left to the recovery room in good condition.
--- NOTE | 2019-07-04 09:01 | SUR.OPER ---
baby A: preoperative FHT 140, live female at 0813. See L&D note for apgars baby B: preoperative FHT 144. live male at 0816. See L&D note for apgars
[2019-07-04 09:03] VITALS: BP 118/49; PULSE 95; RESP 17; O2SAT 100
[2019-07-04 09:08] VITALS: BP 118/64; PULSE 89; RESP 17; O2SAT 100
--- NOTE | 2019-07-04 09:13 | SUR.PHASEI ---
Report called to
[2019-07-04 09:14] VITALS: BP 109/60; PULSE 75; RESP 17; TEMP 36.4; O2SAT 100
--- NOTE | 2019-07-04 09:36 | SUR.PHASEI ---
Patient transferred to the center, report given to Bobbi. VS stable. Abd dressing CDI. Small to mod amount of vaginal bleeding noted. Fundus firm at the umbilicus per Bobbi. IV patent. Spinal level t7.
[2019-07-04] MEDS: ONDANSETRON 4 MG/2 ML INJ IV (11:38)
[2019-07-04] MEDS: HYDROMORPHONE 0.5 MG INJ IV (13:13)
[2019-07-04] MEDS: KETOROLAC 30 MG/ML VIAL IV ×2 (14:23→20:47)
[2019-07-04] MEDS: METOCLOPRAMIDE 10 MG/2 ML INJ IV (14:24)
[2019-07-04] MEDS: OXYCODONE/ACETAMINOPHEN 5/325 TABLET 1 TAB PO (18:55)
[2019-07-04] MEDS: PRAZOSIN 1 MG CAPSULE PO (20:47)
[2019-07-04] MEDS: lamoTRIgine 100 MG TABLET PO (20:48)
[2019-07-04] MEDS: OXYCODONE/ACETAMINOPHEN 5/325 TABLET 2 TAB PO (23:12)
[2019-07-05] MEDS: LACTATED RINGERS 1,000 ML 100 ML IV (01:42)
[2019-07-05] MEDS: KETOROLAC 30 MG/ML VIAL IV (02:50)
[2019-07-05] MEDS: OXYCODONE/ACETAMINOPHEN 5/325 TABLET 2 TAB PO (05:59)
--- NOTE | 2019-07-05 06:55 | PM.PN.1 ---
Subjective Subjective Date Patient Seen: 07/05/19 Time Patient Seen: 07:37 Interval history: day 1. In patient did well overnight. Had some episodes of pain. IV pain medication was given because she had nausea and 1 episode of vomiting. She is now tolerating her diet. Has been up to the bathroom once. Some right-sided incisional pain. Vaginal bleeding as expected. Blackburn catheter still in place signs have been stable. Exam Vital Signs (past 8 hours): Oxygen Delivery Method Room Air Narrative Exam Narrative: General: Alert no apparent distress. Affect is appropriate. Tucker it is uncomfortable. HEENT: Neck is supple without lymphadenopathy pupils equal round and reactive. Cardio: S1-S2 regular rate and rhythm. Respiratory: Lungs clear to auscultation. Abdomen: Uterus firm. Incision clean dry and intact. Extremities: Normal deep tendon reflexes trace edema. Objective Labs Result Diagrams: 07/05/19 06:36 Labs: Laboratory Results - last 24 hr 07/04/19 07/04/19 06:50 06:50 WBC 14.3 H RBC 4.66 Hgb 13.2 Hct 39.3 MCV 84.3 MCH 28.4 MCHC 33.6 RDW 14.9 H Plt Count 244 Neut % (Auto) 74.5 Lymph % (Auto) 17.9 L [place] % (Auto) 5.8 Eos % (Auto) 1.6 L Baso % (Auto) 0.2 Neut # (Auto) 01994 H Lymph # (Auto) 2600 [place] # (Auto) 800 Eos # (Auto) 200 Baso # (Auto) 0 Blood Type O Positive Antibody Screen Negative Assessment & Plan Assessment & Plan narrative: day 1. Status post and bilateral tubal ligation. Plan ambulate Advance diet DC Blackburn catheter Hep-Lock in DC IV. Activity as tolerated. Anticipate discharge tomorrow.
[2019-07-05 07:41] LABS: Add Manual Diff / Slide Review NO; Basophils Absolute Auto 0 /uL (0-100); Basophils Percent Auto 0.2 % (0-2); Eosinophils Absolute Auto 200 /uL (0-450); Eosinophils Percent Auto 1.5 % (2-4); Hematocrit 31.4 % (36-46); Hemoglobin 10.5 g/dL (12.0-16.0); Lymphocytes Absolute Auto 2200 /uL (1100-4500); Lymphocytes Percent Auto 17.4 % (25-40); Mean Corpuscular HGB Conc 33.4 % (30-36); Mean Corpuscular Hemoglobin 28.4 PG (26-34); Mean Corpuscular Volume 84.9 fL (80-100); Monocytes Absolute Auto 900 /uL (0-900); Monocytes Percent Auto 7.3 % (3-14); Neutrophils Absolute Auto 9200 /uL (1500-7000); Neutrophils Percent Auto 73.6 % (50-75); Platelet Count 194 X10^3/uL (150-400); White Blood Cell Count 12.5 X10^3/uL (4.5-11.0)
[2019-07-05] MEDS: PRENATAL VIT,CALC/IRON/FOLIC 1 TABLET 1 TAB PO (08:49)
[2019-07-05] MEDS: IBUPROFEN 600 MG TABLET PO ×3 (08:49→21:18)
[2019-07-05] MEDS: HYDROCODONE/ACET 5/325 TABLET 2 TAB PO ×3 (10:49→19:34)
[2019-07-05] MEDS: lamoTRIgine 100 MG TABLET PO (21:17)
[2019-07-05] MEDS: diphenhydrAMINE 25 MG TABLET 50 MG PO (21:17)
[2019-07-05] MEDS: PRAZOSIN 1 MG CAPSULE PO (21:18)
[2019-07-06] MEDS: IBUPROFEN 600 MG TABLET PO ×4 (02:28→19:40)
[2019-07-06] MEDS: HYDROCODONE/ACET 5/325 TABLET 2 TAB PO ×5 (02:28→19:40)
--- NOTE | 2019-07-06 07:30 | P.PN_ITS ---
Subjective Subjective Date Patient Seen: 07/06/19 Time Patient Seen: 07:30 Interval history: Patient seen yesterday a few times. Do little bit better okay night last night. Pain is improved patient was able to get up and shower. Some right lab I side incisional discomfort. Bandage is intact. She is eating well. Urination on her own after Blackburn catheter. No bowel movement yet. Pain is well controlled with oral pain medication. She is bottle-feeding baby's. Previous at breastfeed. Place back on her medication for mental health today. Exam Vital Signs (past 8 hours): Oxygen Delivery Method Room Air Narrative Exam Narrative: General: Alert no apparent distress. Affect is appropriate. Tucker it is uncomfortable. HEENT: Neck is supple without lymphadenopathy pupils equal round and reactive. Cardio: S1-S2 regular rate and rhythm. Respiratory: Lungs clear to auscultation. Abdomen: Uterus firm. Incision clean dry and intact. Extremities: Normal deep tendon reflexes trace edema. Objective Labs Result Diagrams: 07/05/19 06:36 Labs: Laboratory Results - last 24 hr 07/05/19 06:36 WBC 12.5 H RBC 3.70 L Hgb 10.5 L Hct 31.4 L MCV 84.9 MCH 28.4 MCHC 33.4 RDW 15.0 H Plt Count 194 Neut % (Auto) 73.6 Lymph % (Auto) 17.4 L [place] % (Auto) 7.3 Eos % (Auto) 1.5 L Baso % (Auto) 0.2 Neut # (Auto) 9200 H Lymph # (Auto) 2200 [place] # (Auto) 900 Eos # (Auto) 200 Baso # (Auto) 0 Assessment & Plan Assessment & Plan narrative: Postoperative day 2. Status post for collette marina. Mom's doing well. Blackburn catheter removed SCD removed IV has been hep- locked. Pain is well controlled with oral medication. Patient ambulating having normal urination. Mom's bottle-feeding she is afebrile vital signs are stable. Incision is clean dry and intact. Plan. Discharge today or tomorrow. His mom's feeling a still little bit uncomfortable with taking 2 newborns home at this time.
[2019-07-06] MEDS: DOCUSATE 250 MG CAPSULE PO (07:47)
[2019-07-06] MEDS: PRENATAL VIT,CALC/IRON/FOLIC 1 TABLET 1 TAB PO (07:47)
--- NOTE | 2019-07-06 08:06 | PM.DS.1 ---
History of Present Illness History of Present Illness Chief complaint: [id number] Narrative: 34-year-old female G5 para 3 with than estimated due date of 07/20/2019 by ultrasound and LMP. Puts her at 37 weeks and 6 7th gestational age. care complicated by dichorionic diamniotic twin . History of smoking which she quit during early part of history of PTSD and anxiety. care was initiated at 8 weeks gestational age. Had routine follow-up during care. Had a visit with maternal medicine and Obstetrics at [facility]. Patient had weekly NSTs starting at 30 4 weeks gestational age. Patient has done well throughout the baby. There has been concordant growth during the ultrasounds had follow-up. Mom's blood pressure has been stable throughout the . She has had a weight gain of approximately 70 lb. During here care she was on vitamins Lamictal and propanolol for anxiety and PTSD. And the early part of she stopped her trazodone prazosin and Adderall. On the day evaluation in the obstetric floor she is excited nervous and says she did not sleep well last night. She has been feeling well. Although not sleeping well at all. She has had nothing to eat since late last night. Her blood pressure stable. She has had good movement. She has had no feet fever chills. She has had intermittent abdominal pain and swelling during the . laboratory tests show blood type O-positive antibody screen negative hematocrit 43.4 platelet count 324 VDRL nonreactive urine culture within normal limits hepatitis-B surface antigen negative HIV negative GC chlamydia negative rubella immune Pap smear within normal limits varicella immune genetic screening was within normal limits. Diabetes screen was 116. GBS test was negative. On admission to the hospital. We reviewed admission orders. Operative procedure for for delivery of twins and tubal pressure ligation for permanent sterilization. Questions were answered. Risks benefits and discussion of the operative procedure reviewed with patient and . Consent was reviewed and signed. All questions were answered. Discharge Providers Provider Date of admission: 07/04/19 05:46 Discharge Date: 07/07/19 Primary care physician: Eran Owens MD Consults: 07/04/19 09:42 Consult to [employer] Routine Comment: Discharge provider: Eran Owens MD Summary Hospital Course Discharge Diagnosis: G5 now para 6. Status post section for delivery of viable female and male twin infant. Routine care Hospital Course: Patient was admitted to the hospital for elective section for twins. Patient have section and delivery of viable female and male infant. During the postoperative course. Patient had Blackburn catheter SCDs IV fluids IV and oral pain medication. She did well. Postoperative day 1 incision looked good. Blackburn IV was removed. She was tolerating her diet. She was up ambulating. On day 2. Pain was well controlled bleeding is well controlled. No incisional drainage or discharge no signs of infection. On postoperative day 3. Patient was ready for discharge. Eating tolerating diet. Feeling comfortable about being go home. Oral pain medication was written for. Exam Vital Signs (past 8 hours): Oxygen Delivery Method Room Air Narrative Exam Narrative: General: Alert no apparent distress. Affect is appropriate. Tucker it is uncomfortable. HEENT: Neck is supple without lymphadenopathy pupils equal round and reactive. Cardio: S1-S2 regular rate and rhythm. Respiratory: Lungs clear to auscultation. Abdomen: Uterus firm. Incision clean dry and intact. Extremities: Normal deep tendon reflexes trace edema. Objective Labs Result Diagrams: 07/05/19 06:36 Discharge Plan Discharge Plan Patient Disposition: Home Discharge orders & Medications Prescriptions: New hydrocodone-acetaminophen 5-325 mg Tablet 2 tab PO Q4HR PRN (Reason: Pain, Severe (7-10)) Qty: 30 RF: 0 ibuprofen 600 mg Tablet 600 mg PO Q6HR PRN (Reason: Fever/Mild Pain (1-3)) Qty: 30 RF: 0 docusate sodium 250 mg Capsule 250 mg PO DAILY Qty: 30 RF: 0 Continued propranolol 10 mg tablet 10 mg PO BID RF: 0 lamotrigine [Lamictal] 100 mg tablet 100 mg PO DAILY RF: 0 prenat.vits,bela,ici-fxte-qfkcn tablet 1 tab PO DAILY RF: 0 Follow up/Referrals: Eran Owens MD [Primary Care Provider] - (please follow up w/ Dr. Owens on Jul.11 @ 1:45pm) Visit Report/Discharge Packet Instructions: DI for Stand Alone Forms: Discharge: Care Visit Report Forms: Patient Portal/API, Stroke Signs & Symptoms Discharge Data Primary Care Provider: Eran Owens
[2019-07-06 11:34] VITALS: BP 109/60; PULSE 75; RESP 17; TEMP 36.4
[2019-07-06] MEDS: PRAZOSIN 1 MG CAPSULE PO (21:10)
[2019-07-06] MEDS: lamoTRIgine 100 MG TABLET PO (21:10)
[2019-07-06] MEDS: diphenhydrAMINE 25 MG TABLET 50 MG PO (21:10)
[2019-07-07] MEDS: HYDROCODONE/ACET 5/325 TABLET 2 TAB PO ×2 (01:24→06:56)
[2019-07-07] MEDS: IBUPROFEN 600 MG TABLET PO (04:14)
== END 2019-07-07 10:46 | disposition home or self-care (01) | DRG 785 ==
PROVIDERS: Admitting Provider Family Medicine; PCP Family Medicine; Visit Provider Family Medicine
PROC: 10D00Z1 Extraction of Products of Conception, Low, Open Approach (ICD-10-PCS; CPT 59514; principal; 2019-07-04 07:45)
DX: O30.043 Twin pregnancy, dichorionic/diamniotic, third trimester (principal); Z3A.37 37 weeks gestation of pregnancy; Z37.2 Twins, both liveborn; R11.2 Nausea with vomiting, unspecified; Z30.2 Encounter for sterilization; O99.344 Other mental disorders complicating childbirth; F41.9 Anxiety disorder, unspecified; F43.10 Post-traumatic stress disorder, unspecified
CPT/HCPCS: 36415; 59050; 59510; 59514; 85025; 86850; 86900; 86901; J0690; J1170; J1885; J2274; J2405; J2590; J2765

== ENCOUNTER → 2020-02-03 14:35 | Outpatient (CLI) | payer OTHER, MEDICAID, SELFPAY ==
--- NOTE | 2020-02-03 14:36 | DI.US.S_ITS ---
PROCEDURE: US ABDOMEN COMPLETE INDICATIONS: LUQ PAIN TECHNIQUE: Real-time scanning was performed of the abdominal and retroperitoneal organs, with image documentation. COMPARISON: None. FINDINGS: Liver: Liver is normal in size and homogeneous in echotexture. Gallbladder: Nondilated. No stones or sludge. Normal gallbladder wall thickness. No pericholecystic fluid. Negative sonographic Ann's sign. Biliary ducts: Intrahepatic bile ducts are non-dilated. Extrahepatic bile duct caliber measures 4 mm. Normal is 6-7 mm or less in diameter, or 10 mm or less post-cholecystectomy. Pancreas: Visualized portions of the pancreas are sonographically normal. Spleen: Spleen is normal in size. 2 small hypodense foci in the spleen measuring 0.8 cm. These most likely represent small benign hemangiomas. Kidneys: Kidneys are normal in size and echotexture. Right kidney measures 10.9 cm long; left kidney measures 11.4 cm long. No hydronephrosis or nephrolithiasis. Echogenic lesion in the right lateral mid kidney measuring 1.3 x 1 x 0.7 cm. No posterior acoustic features. Aorta: Visualized aorta is normal in caliber at less than 3 cm. Iliacs: Proximal common iliac arteries are normal in caliber at less than 2.5 cm. IVC: Intrahepatic inferior vena cava is patent. Miscellaneous: No free abdominal fluid. IMPRESSION: 1. No acute abnormality identified. No acute cholecystitis. No gallstones. No hydronephrosis. 2. Right kidney echogenic lesion measuring 1.3 cm. This is most compatible with an angiomyolipoma. -This can be confirmed with renal MRI or CT renal protocol. Dictated by: Yong Vidal M.D. on 02/03/2020 at 15:45 Approved by: Yong Vidal M.D. on 02/03/2020 at 15:55
== END ==
PROVIDERS: PCP Family Medicine; Referring Provider Family Medicine; Visit Provider Family Medicine
DX: R10.12 Left upper quadrant pain (principal); N28.9 Disorder of kidney and ureter, unspecified
CPT/HCPCS: 76700